=== PATIENT | male | born 1975 | race Hispanic/Latino ===

== ENCOUNTER 2022-06-16 09:54 | Emergency (ER) | payer MEDICAID ==
[~2022-06-16] VITALS: Ht 175.3 cm; Wt 108.4 kg
[2022-06-16 09:56] VITALS: BP 150/96
[2022-06-16] MEDS ORDERED: CLIN-141 PO (13:17)
== END 2022-06-16 13:26 | disposition home or self-care (01) ==
LOC: EDH 09:54
DX: L03.114 Cellulitis of left upper limb (principal)
CPT/HCPCS: 73140